=== PATIENT | male | born 1985 | race Two or more races ===

== ENCOUNTER 2016-08-21 08:18 | Emergency (ER) | payer OTHER | END 2016-08-21 08:51 | disposition home or self-care (01) | LOC: ED 08:18 | DX: R11.10 Vomiting, unspecified (principal) ==

== ENCOUNTER 2016-08-21 18:42 | Emergency (ER) | payer OTHER ==
--- NOTE | 2016-08-21 20:45 | CT ---
CT ABDOMEN AND PELVIS WITHOUT CONTRAST HISTORY: Left flank pain. TECHNIQUE: No intravenous contrast administered; contiguous axial images were acquired from the lung bases to the ischial tuberosities. Oral contrast was not administered. COMPARISON:None. FINDINGS: LUNG BASES: Minor fibrotic atelectatic change of the right middle lobe. No gross airspace disease or pleural effusion. LIVER: No focal mass effect. SPLEEN: No focal mass effect. PANCREAS: No focal mass effect. ADRENAL GLANDS: No mass effect. KIDNEYS: No renal calculi. No collecting system dilatation. Minimal perirenal stranding bilaterally. No ureteral dilatation. GALLBLADDER: Present. ANTERIOR ABDOMINAL WALL: Small umbilical fatty hernia. BOWEL: Moderate fecal loading. Limited assessment of the distal colon due to decompression. No abnormal small bowel dilatation. Findings of colonic diverticulosis without diverticulitis. APPENDIX: Normal gas-filled appendix. PELVIC ORGANS: No gross mass effect. FREE FLUID: No gross free fluid identified. INGUINAL REGIONS: Small fatty left inguinal hernia. ABDOMINOPELVIC LYMPH NODES: No abnormally enlarged lymph nodes identified. There is increase in soft tissue stranding seen along portions of the mesentery at the right lateral aspect, of uncertain significance. ABDOMINAL AORTA: Normal caliber. OSSEOUS STRUCTURES: Nonacute endplate herniations of the L3 and L4 vertebrae. No destructive lesions. IMPRESSION: 1. No CT evidence of upper urinary tract obstruction or renal calculi. The current study does not exclude pyelonephritis. 2. Noninflammatory, nonobstructive appearance of bowel. Normal appendix. Colonic diverticulosis without diverticulitis. 3. Minor ill-defined soft tissue stranding along the right lateral mesenteric vessels. Consider 3 month follow-up assessment, particularly if there is associated pain. 4. Small fatty left inguinal hernia. Results were electronically transmitted to the electronic medical record at 08/21/2016 at 2041 hours.
== END 2016-08-21 21:09 | disposition home or self-care (01) ==
LOC: ED 18:42
DX: K40.90 Unilateral inguinal hernia, without obstruction or gangrene, not specified as recurrent (principal); R11.2 Nausea with vomiting, unspecified

== ENCOUNTER 2016-09-08 01:41 | Emergency (ER) | payer OTHER ==
[2016-09-08] MEDS ORDERED: IBUPROFEN 800 MG TABLET ONE (02:42)
== END 2016-09-08 02:48 | disposition home or self-care (01) ==
LOC: ED 01:41
DX: J02.9 Acute pharyngitis, unspecified (principal)
CPT/HCPCS: 87880; 99283 ×2; A9270

== ENCOUNTER 2016-09-16 22:13 | Emergency (ER) | payer OTHER ==
[2016-09-16] MEDS ORDERED: LACTATED RINGERS 1,000 ML ONE (22:30)
[2016-09-16] MEDS ORDERED: ONDANSETRON 4 MG/2ML 2 ML VIAL ONE (22:31)
[2016-09-16 23:00] LABS: ABSOLUTE NEUTROPHIL COUNT 5.8 K/mm3 (1.8-7.7); BASO # 0.1 K/mm3 (0.0-0.2); BASO % 0.6 % (0.2-1.0); EOS # 0.1 (0.0-0.5); EOS % 0.7 % (0.9-2.9); HEMATOCRIT 45.2 % (32.0-52.0); HEMOGLOBIN 15.9 gm/l (14.0-18.0); IMM NEUT% 0.4 % (0-1); LYMPH # 2.5 (1.0-4.8); LYMPH % 28.4 % (15-45); MEAN CELL VOLUME 86.3 fl (80.0-94.0); MEAN CORPUSCULAR HEMOGLOBIN 30.3 pg (27.0-31.0); MEAN CORPUSCULAR HGB CONC 35.2 g/dl (33.0-37.0); MEAN PLATELET VOLUME 9.6 fl (7.4-10.4); MONO # 0.4 (0.0-0.8); MONO % 4.7 % (4-12); NEUT % 65.2 % (43-75); PLATELET COUNT 238 K/mm3 (130-400); RED CELL DISTRIBUTION WIDTH 12.6 % (11.5-14.5)
[2016-09-16 23:12] LABS: ALB/GLOB RATIO 1.2 (>1.0); ALBUMIN 4.2 gm/dL (3.5-5.7); CALCIUM 8.9 mg/dL (8.6-10.3)
== END 2016-09-17 01:02 | disposition home or self-care (01) ==
LOC: ED 22:13
DX: T51.0X1A Toxic effect of ethanol, accidental (unintentional), initial encounter (principal); R11.2 Nausea with vomiting, unspecified; R10.32 Left lower quadrant pain; F10.10 Alcohol abuse, uncomplicated; Y92.9 Unspecified place or not applicable
CPT/HCPCS: 83690; 85025; 80053; 80307; 99283 ×2; 96374; 96361; J2405; J7120